=== PATIENT | female | born 1995 | race Caucasian/White ===

== ENCOUNTER 2020-02-27 11:44 | Inpatient (IN) | payer OTHER, SELFPAY ==
[2020-02-27] VITALS (13 sets, daily range): BP systolic 95–128; BP diastolic 47–85; PULSE 67–92; RESP 13–18; TEMP 37–37.3; O2SAT 96–99; BMI 25.0
--- NOTE | 2020-02-27 12:34 | XRR_ITS ---
PROCEDURE INFORMATION: Exam: XR Chest, 1 View Exam date and time: 02/27/2020 1:15 PM Age: 25 years old Clinical indication: Fever TECHNIQUE: Imaging protocol: XR of the chest Views: 1 view. COMPARISON: No relevant prior studies available. FINDINGS: Lungs: Unremarkable. No consolidation. Pleural space: Unremarkable. No pleural effusion. No pneumothorax. Heart/Mediastinum: Unremarkable. No cardiomegaly. Bones/joints: No acute findings. XR/XR chest 1V portable [id number] IMPRESSION: No acute findings.
--- NOTE | 2020-02-27 12:34 | CTR_ITS ---
PROCEDURE INFORMATION: Exam: CT Head Without Contrast Exam date and time: 02/27/2020 1:12 PM Age: 25 years old Clinical indication: Pain; Fever; Headache and other: Neck; Headache not specified; Additional info: Severe headache, neck pain, fever TECHNIQUE: Imaging protocol: Computed tomography of the head without contrast. Radiation optimization: All CT scans at this facility use at least one of these dose optimization techniques: automated exposure control; mA and/or kV adjustment per patient size (includes targeted exams where dose is matched to clinical indication); or iterative reconstruction. COMPARISON: No relevant prior studies available. RADIATION DOSE METRICS: Total DLP (mGy-cm): 825.63 FINDINGS: Brain: No hemorrhage. Unremarkable white matter. No mass effect. Ventricles: Normal. No ventriculomegaly. Bones/joints: Unremarkable. No acute fracture. Sinuses: No acute sinusitis. Mastoid air cells: Unremarkable. Soft tissues: Unremarkable. CT/CT head wo con* [id number] IMPRESSION: No acute intracranial abnormality. Radiation Dose CTDIVOL = (mGy): DLP = 825.63 (mGy-cm)
[2020-02-27 12:49] LABS: Basophils % 0.4 %; Eosinophils # 0.1 10^3/uL (0.0-0.8); Eosinophils % 0.9 %; Hematocrit 38.6 % (37.0-47.0); Hemoglobin 12.7 g/dL (11.5-15.3); Lymphocytes # 2.4 10^3/uL (0.8-4.8); Lymphocytes % 25.6 %; Mean Corpuscular HGB Conc 32.9 g/dL (30.0-36.0); Mean Corpuscular Hemoglobin 29.4 pg (28.0-34.0); Mean Corpuscular Volume 89.4 fL (81-99); Mean Platelet Volume 10.2 fL (7.4-10.4); Monocytes # 0.7 10^3/uL (0.2-0.9); Neutrophils % 64.9 %; Nucleated Red Blood Cells % 0 %; Platelet Count 351 10^3/cmm (130-400); Red Blood Count 4.32 10^6/uL (4.1-5.3); Red Cell Distribution Width 11.5 % (12.1-15.1); White Blood Count 9.2 10^3/uL (4.0-10.0)
[2020-02-27 12:54] LABS: HCG Qualitative Urine. Negative (Negative)
[2020-02-27 12:58] LABS: Lactate (Lactic Acid level) 0.6 mmol/L (0.5-2.2)
[2020-02-27 12:59] LABS: Alanine Aminotransferase 17 U/L (0-33); Albumin Level 4.7 g/dL (3.5-5.2); Alkaline Phosphatase 81 IU/L (35-105); Anion Gap 14.8 (5-19); Aspartate Amino Transferase 24 U/L (0-32); Blood Urea Nitrogen 12 mg/dL (6-20); Calcium 9.5 mg/dL (8.5-10.5); Carbon Dioxide 24 mmol/L (22-29); Chloride 101 mmol/L (98-107); Globulin 2.9 g/dL (1.3-4.6); Glucose 118 mg/dL (65-115); Osmolality Calculated 279 mOsm/kg (285-295); Potassium 3.8 mmol/L (3.5-5.1); Sodium 136 mmol/L (136-145); Total Bilirubin 0.7 mg/dL (0.15-1.2); Total Protein 7.6 g/dL (6.6-8.7)
[2020-02-27 13:01] LABS: Add Urine Microscopic? YES; Amphetamines Screen Urine Negative (Negative); Barbiturates Screen Urine Negative (Negative); Benzodiazepines Screen Urine Negative (Negative); Bilirubin Urine Neg (NEGATIVE); Blood Urine 2+ (Negative); Cocaine Screen Urine Negative (Negative); Glucose Urine UA Norm (Normal); Ketones Urine 1+ (Negative); Leukocyte Esterase Urine Trace (Negative); Nitrate Urine Negative (Negative); Opiate Screen Urine Negative (Negative); PCP Screen Urine Negative (Negative); Protein Urine Neg (Negative); THC Screen Urine Negative (Negative); Urine Color Yellow (Yellow); Urobilinogen Urine Neg (Negative); pH Urine 5 (5-7)
[2020-02-27 13:05] LABS: Add Urine Culture? Yes; Bacteria Urine 2+; Mucus Urine 2+
--- NOTE | 2020-02-27 13:07 | ED_ITS ---
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 She presents today with extreme weakness, fever of about 100 ?F, severe headache and neck pain. Symptoms started last night but became much worse in the early hours of this morning. She denies any cough or difficulty breathing. She denies any abdominal symptoms. No dysuria or hematuria. She has had tick bites within the last 2 weeks. She went to her primary care provider's office today who was worried about meningitis and so sent her here to be evaluated. Onset (ago): day(s) (1) Location: head Radiation: neck Severity: severe Associated symptoms: Reports fevers/chills and malaise; Deny chest pain, confusion, cough, dyspnea, nausea, rash, short of breath or vomiting Review of Systems General: Reports: 10 or more systems reviewed and unremarkable except in HPI and below Const: Reports: malaise Eyes: Denies: change in vision or blurry vision ENMT: Denies: throat pain, enlarged tonsils, odynophagia, hoarseness, mouth pain or swelling of lips/tongue Card: Denies: chest pain Resp: Denies: dyspnea GI: Denies: abdominal pain, nausea or vomiting : Denies: flank pain, difficulty voiding, dysuria, urinary frequency, urin reed urgency or urinary hesitancy Musc: Denies: neck pain, back pain or extremity swelling Skin/Breast: Denies: rash Neuro: Denies: confusion Endo: Denies: polyuria, polydipsia or tired all the time PFSH ED PFSH: Medical History Meningitis Seizures Family History Grandfather Diabetes Denies family history of Dementia Cancer Social History (Updated 02/27/20 @ 17:01 by Matt Pichardo MD) Smoking and tobacco status: never smoked Second hand smoke exposure: No Alcohol intake: never Substance/Drug Use: never Lives independently: No Household members: spouse Housing: House Highest education level completed: Other Doctoral Degree Physical Exam Const: COMMON NORMALS: no acute distress, average body habitus, patient oriented x3, no limitations, healthy appearing, alert and well nourished GENERAL APPEARANCE: lethargic ORIENTATION/CONSCIOUSNESS: Yes lethargic HENMT: COMMON NORMALS: normocephalic, atraumatic and moist oral mucous membranes HEAD & SCALP: normocephalic and atraumatic Eye: COMMON NORMALS: Equal, round and reactive pupils present, EOMs intact bilaterally, conjunctivae normal and no scleral icterus CONJUNCTIVA: Yes conjunctivae normal PUPIL: Yes Equal, round and reactive pupils present Neck/C-Spine: COMMON NORMALS: full ROM, supple, no meningeal signs, no JVD and No carotid bruits OTHER: Negative Kernig's and Brudzinski's sign Resp: COMMON NORMALS: normal respiratory effort, No retractions, No use of accessory muscles, clear to auscultation bilaterally and percussion normal AUSCULTATION: clear to auscultation bilaterally PERCUSSION: percussion normal Cardio: COMMON NORMALS: no JVD, regular rate, regular rhythm, S1 normal heart sound present, S2 normal heart sound present, No gallops present (Cardio), No clicks present (Cardio), No murmurs present (Cardio), No rub (Cardio) and Peripheral pulses 2+ throughout RATE: regular rate RHYTHM: regular rhythm HEART SOUNDS: S1 normal heart sound present and S2 normal heart sound present PERIPHERAL PULSES: Peripheral pulses 2+ throughout GI: COMMON NORMALS: Normal to inspection, nondistended, normoactive bowel sounds present, Soft to palpation, non-tender, No hepatosplenomegaly present, no masses and no bruits PALPATION: Yes Soft to palpation and Yes No hepatosplenomegaly present : COMMON NORMALS: Yes no CVA tenderness BLADDER/KIDNEY EXAM: Yes no CVA tenderness Back/Pelvis: COMMON NORMALS: no CVA tenderness Extremity: COMMON NORMALS: normal to inspection, full ROM, capillary refill normal, no calf tenderness and no pedal edema Neuro: COMMON NORMALS: patient oriented x3 SENSORIUM/ORIENTATION: Yes alert and Yes lethargic MENINGEAL SIGNS: Yes no meningeal signs Skin: COMMON NORMALS: no rashes or lesions noted, no wounds, turgor normal, no jaundice, no petechiae and no mottling GENERAL SKIN EXAM: no rashes or lesions noted and turgor normal Course Reevaluation(s): Reevaluation #1: Discussed her lab and imaging findings with her. CSF analysis seems to support viral meningitis although with a high protein he could possibly be bacterial. Will advise hospital admission. She voiced understanding and is in agreement with the plan. Time: 16:10 Consultations: Consultation #1: Dr. Guzman, hospitalist. He kindly accepts patient to his service. 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 She was sent in here because her primary care provider was worried about meningitis. She had no meningeal signs however since her labs were unremarkable and head CT was negative a lumbar puncture was done by interventional radiology. She does have elevated white cell count in her CSF with almost 100% mononuclear cells. This is suggestive of a viral meningitis, however protein is increased which is more in keeping with a bacterial meningitis. Since this is a mixed picture she was started on antibiotics and she is admitted to the hospital for further evaluation and management. She is also tested for COVID-19 Medical Records: Attestation: I reviewed the patient's medical records. Lab Data: Attestation: I reviewed the patient's lab results. Labs: Lab Results 02/27/20 02/27/20 02/27/20 Range/Units 12:19 12:19 12:19 WBC 9.2 (4.0-10.0) 10^3/ uL RBC 4.32 (4.1-5.3) 10^6/u L Hgb 12.7 (11.5-15.3) g/dL Hct 38.6 (37.0-47.0) % MCV 89.4 (81-99) fL MCH 29.4 (28.0-34.0) pg MCHC 32.9 (30.0-36.0) g/dL RDW 11.5 L (12.1-15.1) % Plt Count 351 (130-400) 10^3/c mm MPV 10.2 (7.4-10.4) fL Neut % (Auto) 64.9 % Lymph % (Auto) 25.6 % Free[place] % (Auto) 8.0 % Eos % (Auto) 0.9 % Baso % (Auto) 0.4 % Neut # (Auto) 6.0 (1.8-7.7) 10^3/u L Lymph # (Auto) 2.4 (0.8-4.8) 10^3/u L Free[place] # (Auto) 0.7 (0.2-0.9) 10^3/u L Eos # (Auto) 0.1 (0.0-0.8) 10^3/u L Baso # (Auto) 0.0 (0.0-0.1) 10^3/u L Nucleated RBC % (a uto) 0 % Nucleated RBCs # 0.0 /100WBC ESR (0-15) mm/hr D-Dimer (0-0.59) ug/mIFE U Sodium 136 (136-145) mmol/L Potassium 3.8 (3.5-5.1) mmol/L Chloride 101 (98-107) mmol/L Carbon Dioxide 24 (22-29) mmol/L Anion Gap 14.8 (5-19) BUN 12 (6-20) mg/dL Creatinine 0.7 (0.5-0.9) mg/dL GFR Calculation 102.0 (90-130) mL/min Glucose 118 H (65-115) mg/dL Calculated Osmolal ity 279 L (285-295) mOsm/k g Lactate 0.6 (0.5-2.2) mmol/L Calcium 9.5 (8.5-10.5) mg/dL Total Bilirubin 0.7 (0.15-1.2) mg/dL AST 24 (0-32) U/L ALT 17 (0-33) U/L Alkaline Phosphata se 81 (35-105) IU/L Lactate Dehydrogen ase (135-214) U/L C-Reactive Protein 3.3 (0.0-4.9) mg/L Total Protein 7.6 (6.6-8.7) g/dL Albumin 4.7 (3.5-5.2) g/dL Globulin 2.9 (1.3-4.6) g/dL Procalcitonin 0.04 (0-0.5) ng/mL TSH (0.27-4.20) uIU/ mL HCG, Qual (Negative) Urine Color (Yellow) Urine Appearance (CLEAR) Urine pH (5-7) Ur Specific Gravit y (1.005-1.030) Urine Protein (Negative) Urine Glucose (UA) (Normal) Urine Ketones (Negative) Urine Blood (Negative) Urine Nitrate (Negative) Urine Bilirubin (NEGATIVE) Urine Urobilinogen (Negative) mg/dL Ur Leukocyte Yamilet ase (Negative) Urine RBC (0-2) /hpf Urine WBC (0-5) /hpf Ur Squamous Epith Cells (0-5) Amorphous Sediment Urine Bacteria (NONE) Urine Mucus CSF Appearance (CLEAR) CSF Color (COLORLESS) CSF WBC (0-5) /uL CSF RBC (0-0) 10^3/uL CSF Mononuclear # Auto (50-90) 10^3/uL CSF Mononuclear WB Cs % (50-90) % CSF Polynuclear WB Cs # (0-10) 10^3/uL CSF Polynuclear WB Cs % (0-10) % CSF Diff Comment CSF Glucose (40-70) mg/dL CSF Lactate CSF Total Protein (15-45) mg/dL CSF Albumin Urine Opiates Scre en (Negative) ng/mL Ur Barbiturates Sc reen (Negative) ng/mL Ur Phencyclidine S crn (Negative) ng/mL Ur Amphetamines Sc reen (Negative) ng/mL U Benzodiazepines Scrn (Negative) ng/mL Urine Cocaine Scre en (Negative) ng/mL U Marijuana (THC) Screen (Negative) ng/mL 02/27/20 02/27/20 02/27/20 Range/Units 12:19 12:19 12:19 WBC (4.0-10.0) 10^3/ uL RBC (4.1-5.3) 10^6/u L Hgb (11.5-15.3) g/dL Hct (37.0-47.0) % MCV (81-99) fL MCH (28.0-34.0) pg MCHC (30.0-36.0) g/dL RDW (12.1-15.1) % Plt Count (130-400) 10^3/c mm MPV (7.4-10.4) fL Neut % (Auto) % Lymph % (Auto) % Free[place] % (Auto) % Eos % (Auto) % Baso % (Auto) % Neut # (Auto) (1.8-7.7) 10^3/u L Lymph # (Auto) (0.8-4.8) 10^3/u L Free[place] # (Auto) (0.2-0.9) 10^3/u L Eos # (Auto) (0.0-0.8) 10^3/u L Baso # (Auto) (0.0-0.1) 10^3/u L Nucleated RBC % (a uto) % Nucleated RBCs # /100WBC ESR 15 (0-15) mm/hr D-Dimer 0.60 H (0-0.59) ug/mIFE U Sodium (136-145) mmol/L Potassium (3.5-5.1) mmol/L Chloride (98-107) mmol/L Carbon Dioxide (22-29) mmol/L Anion Gap (5-19) BUN (6-20) mg/dL Creatinine (0.5-0.9) mg/dL GFR Calculation (90-130) mL/min Glucose (65-115) mg/dL Calculated Osmolal ity (285-295) mOsm/k g Lactate (0.5-2.2) mmol/L Calcium (8.5-10.5) mg/dL Total Bilirubin (0.15-1.2) mg/dL AST (0-32) U/L ALT (0-33) U/L Alkaline Phosphata se (35-105) IU/L Lactate Dehydrogen ase 168 (135-214) U/L C-Reactive Protein 3.3 (0.0-4.9) mg/L Total Protein (6.6-8.7) g/dL Albumin (3.5-5.2) g/dL Globulin (1.3-4.6) g/dL Procalcitonin (0-0.5) ng/mL TSH 0.65 (0.27-4.20) uIU/ mL HCG, Qual (Negative) Urine Color (Yellow) Urine Appearance (CLEAR) Urine pH (5-7) Ur Specific Gravit y (1.005-1.030) Urine Protein (Negative) Urine Glucose (UA) (Normal) Urine Ketones (Negative) Urine Blood (Negative) Urine Nitrate (Negative) Urine Bilirubin (NEGATIVE) Urine Urobilinogen (Negative) mg/dL Ur Leukocyte Yamilet ase (Negative) Urine RBC (0-2) /hpf Urine WBC (0-5) /hpf Ur Squamous Epith Cells (0-5) Amorphous Sediment Urine Bacteria (NONE) Urine Mucus CSF Appearance (CLEAR) CSF Color (COLORLESS) CSF WBC (0-5) /uL CSF RBC (0-0) 10^3/uL CSF Mononuclear # Auto (50-90) 10^3/uL CSF Mononuclear WB Cs % (50-90) % CSF Polynuclear WB Cs # (0-10) 10^3/uL CSF Polynuclear WB Cs % (0-10) % CSF Diff Comment CSF Glucose (40-70) mg/dL CSF Lactate CSF Total Protein (15-45) mg/dL CSF Albumin Urine Opiates Scre en (Negative) ng/mL Ur Barbiturates Sc reen (Negative) ng/mL Ur Phencyclidine S crn (Negative) ng/mL Ur Amphetamines Sc reen (Negative) ng/mL U Benzodiazepines Scrn (Negative) ng/mL Urine Cocaine Scre en (Negative) ng/mL U Marijuana (THC) Screen (Negative) ng/mL 02/27/20 02/27/20 02/27/20 Range/Units 12:43 12:43 12:46 WBC (4.0-10.0) 10^3/ uL RBC (4.1-5.3) 10^6/u L Hgb (11.5-15.3) g/dL Hct (37.0-47.0) % MCV (81-99) fL MCH (28.0-34.0) pg MCHC (30.0-36.0) g/dL RDW (12.1-15.1) % Plt Count (130-400) 10^3/c mm MPV (7.4-10.4) fL Neut % (Auto) % Lymph % (Auto) % Free[place] % (Auto) % Eos % (Auto) % Baso % (Auto) % Neut # (Auto) (1.8-7.7) 10^3/u L Lymph # (Auto) (0.8-4.8) 10^3/u L Free[place] # (Auto) (0.2-0.9) 10^3/u L Eos # (Auto) (0.0-0.8) 10^3/u L Baso # (Auto) (0.0-0.1) 10^3/u L Nucleated RBC % (a uto) % Nucleated RBCs # /100WBC ESR (0-15) mm/hr D-Dimer (0-0.59) ug/mIFE U Sodium (136-145) mmol/L Potassium (3.5-5.1) mmol/L Chloride (98-107) mmol/L Carbon Dioxide (22-29) mmol/L Anion Gap (5-19) BUN (6-20) mg/dL Creatinine (0.5-0.9) mg/dL GFR Calculation (90-130) mL/min Glucose (65-115) mg/dL Calculated Osmolal ity (285-295) mOsm/k g Lactate (0.5-2.2) mmol/L Calcium (8.5-10.5) mg/dL Total Bilirubin (0.15-1.2) mg/dL AST (0-32) U/L ALT (0-33) U/L Alkaline Phosphata se (35-105) IU/L Lactate Dehydrogen ase (135-214) U/L C-Reactive Protein (0.0-4.9) mg/L Total Protein (6.6-8.7) g/dL Albumin (3.5-5.2) g/dL Globulin (1.3-4.6) g/dL Procalcitonin (0-0.5) ng/mL TSH (0.27-4.20) uIU/ mL HCG, Qual Negative (Negative) Urine Color Yellow (Yellow) Urine Appearance Sl cloudy A (CLEAR) Urine pH 5 (5-7) Ur Specific Gravit y 1.020 (1.005-1.030) Urine Protein Neg (Negative) Urine Glucose (UA) Norm (Normal) Urine Ketones 1+ H (Negative) Urine Blood 2+ H (Negative) Urine Nitrate Negative (Negative) Urine Bilirubin Neg (NEGATIVE) Urine Urobilinogen Neg (Negative) mg/dL Ur Leukocyte Yamilet ase Trace H (Negative) Urine RBC 5-10 H (0-2) /hpf Urine WBC 5-10 H (0-5) /hpf Ur Squamous Epith Cells 5-10 H (0-5) Amorphous Sediment Not Reportable Urine Bacteria 2+ H (NONE) Urine Mucus 2+ CSF Appearance (CLEAR) CSF Color (COLORLESS) CSF WBC (0-5) /uL CSF RBC (0-0) 10^3/uL CSF Mononuclear # Auto (50-90) 10^3/uL CSF Mononuclear WB Cs % (50-90) % CSF Polynuclear WB Cs # (0-10) 10^3/uL CSF Polynuclear WB Cs % (0-10) % CSF Diff Comment CSF Glucose (40-70) mg/dL CSF Lactate CSF Total Protein (15-45) mg/dL CSF Albumin Urine Opiates Scre en Negative (Negative) ng/mL Ur Barbiturates Sc reen Negative (Negative) ng/mL Ur Phencyclidine S crn Negative (Negative) ng/mL Ur Amphetamines Sc reen Negative (Negative) ng/mL U Benzodiazepines Scrn Negative (Negative) ng/mL Urine Cocaine Scre en Negative (Negative) ng/mL U Marijuana (THC) Screen Negative (Negative) ng/mL 02/27/20 Range/Units 15:15 WBC (4.0-10.0) 10^3/ uL RBC (4.1-5.3) 10^6/u L Hgb (11.5-15.3) g/dL Hct (37.0-47.0) % MCV (81-99) fL MCH (28.0-34.0) pg MCHC (30.0-36.0) g/dL RDW (12.1-15.1) % Plt Count (130-400) 10^3/c mm MPV (7.4-10.4) fL Neut % (Auto) % Lymph % (Auto) % [place] % (Auto) % Eos % (Auto) % Baso % (Auto) % Neut # (Auto) (1.8-7.7) 10^3/u L Lymph # (Auto) (0.8-4.8) 10^3/u L [place] # (Auto) (0.2-0.9) 10^3/u L Eos # (Auto) (0.0-0.8) 10^3/u L Baso # (Auto) (0.0-0.1) 10^3/u L Nucleated RBC % (a uto) % Nucleated RBCs # /100WBC ESR (0-15) mm/hr D-Dimer (0-0.59) ug/mIFE U Sodium (136-145) mmol/L Potassium (3.5-5.1) mmol/L Chloride (98-107) mmol/L Carbon Dioxide (22-29) mmol/L Anion Gap (5-19) BUN (6-20) mg/dL Creatinine (0.5-0.9) mg/dL GFR Calculation (90-130) mL/min Glucose (65-115) mg/dL Calculated Osmolal ity (285-295) mOsm/k g Lactate (0.5-2.2) mmol/L Calcium (8.5-10.5) mg/dL Total Bilirubin (0.15-1.2) mg/dL AST (0-32) U/L ALT (0-33) U/L Alkaline Phosphata se (35-105) IU/L Lactate Dehydrogen ase (135-214) U/L C-Reactive Protein (0.0-4.9) mg/L Total Protein (6.6-8.7) g/dL Albumin (3.5-5.2) g/dL Globulin (1.3-4.6) g/dL Procalcitonin (0-0.5) ng/mL TSH (0.27-4.20) uIU/ mL HCG, Qual (Negative) Urine Color (Yellow) Urine Appearance (CLEAR) Urine pH (5-7) Ur Specific Gravit y (1.005-1.030) Urine Protein (Negative) Urine Glucose (UA) (Normal) Urine Ketones (Negative) Urine Blood (Negative) Urine Nitrate (Negative) Urine Bilirubin (NEGATIVE) Urine Urobilinogen (Negative) mg/dL Ur Leukocyte Yamilet ase (Negative) Urine RBC (0-2) /hpf Urine WBC (0-5) /hpf Ur Squamous Epith Cells (0-5) Amorphous Sediment Urine Bacteria (NONE) Urine Mucus CSF Appearance Clear (CLEAR) CSF Color Colorless (COLORLESS) CSF WBC 80 H (0-5) /uL CSF RBC 0 (0-0) 10^3/uL CSF Mononuclear # Auto 0.078 L (50-90) 10^3/uL CSF Mononuclear WB Cs % 98 H (50-90) % CSF Polynuclear WB Cs # 0.002 (0-10) 10^3/uL CSF Polynuclear WB Cs % 2 (0-10) % CSF Diff Comment Yes CSF Glucose 45 (40-70) mg/dL CSF Lactate TNP CSF Total Protein 70 H (15-45) mg/dL CSF Albumin TNP Urine Opiates Scre en (Negative) ng/mL Ur Barbiturates Sc reen (Negative) ng/mL Ur Phencyclidine S crn (Negative) ng/mL Ur Amphetamines Sc reen (Negative) ng/mL U Benzodiazepines Scrn (Negative) ng/mL Urine Cocaine Scre en (Negative) ng/mL U Marijuana (THC) Screen (Negative) ng/mL Imaging Data^: CXR: Radiologist's impression: [address] [address] XRay Report Signed Patient: Deborah Koch #: [id number] : 1995Acct#:[id number] Age/Sex: 25 FADM Date: 02/27/20 Loc: [facility]/Bed: Attending Dr: Ordering Provider/Ordering MD: Julius Ricks MD, [facility] [place] Date of Service: 02/27/20 Procedure(s): XR chest 1V portable [id number] Accession Number(s): [id number] Report Number: [id number] PROCEDURE INFORMATION: Exam: XR Chest, 1 View Exam date and time: 02/27/2020 1:15 PM Age: 25 years old Clinical indication: Fever TECHNIQUE: Imaging protocol: XR of the chest Views: 1 view. COMPARISON: No relevant prior studies available. FINDINGS: Lungs: Unremarkable. No consolidation. Pleural space: Unremarkable. No pleural effusion. No pneumothorax. Heart/Mediastinum: Unremarkable. No cardiomegaly. Bones/joints: No acute findings. XR/XR chest 1V portable [id number] IMPRESSION: No acute findings. Dictated By:Carlos Fernandez MD Signed By:[facility] Fernandez [facility] Date/Time:06/1336 DD/ 34 CT Head: Radiologist's impression: [address] [place] [address] CT Scan Report Signed Patient: Deborah Koch #: [id number] : 1995Acct#:[id number] Age/Sex: 25 / FADM Date: 02/27/20 Loc: [facility]/Bed: Attending Dr: Ordering Provider/Ordering MD: Julius Ricks MD, [facility] [place] Date of Service: 02/27/20 Procedure(s): CT head wo con* [id number] Accession Number(s): [id number] Report Number: [id number] PROCEDURE INFORMATION: Exam: CT Head Without Contrast Exam date and time: 02/27/2020 1:12 PM Age: 25 years old Clinical indication: Pain; Fever; Headache and other: Neck; Headache not specified; Additional info: Severe headache, neck pain, fever TECHNIQUE: Imaging protocol: Computed tomography of the head without contrast. Radiation optimization: All CT scans at this facility use at least one of these dose optimization techniques: automated exposure control; mA and/or kV adjustment per patient size (includes targeted exams where dose is matched to clinical indication); or iterative reconstruction. COMPARISON: No relevant prior studies available. RADIATION DOSE METRICS: Total DLP (mGy-cm): 825.63 FINDINGS: Brain: No hemorrhage. Unremarkable white matter. No mass effect. Ventricles: Normal. No ventriculomegaly. Bones/joints: Unremarkable. No acute fracture. Sinuses: No acute sinusitis. Mastoid air cells: Unremarkable. Soft tissues: Unremarkable. CT/CT head wo con* [id number] IMPRESSION: No acute intracranial abnormality. Radiation Dose CTDIVOL = (mGy): DLP = 825.63 (mGy-cm) Dictated By:Carlos Fernandez MD Signed By:Carlos Fernandez MDSigned Date/Time:02/27/201337 DD/ 35 Discharge Plan Discharge Patient Disposition: Admitted As Inpatient Admit Provider: Matt Pichardo Clinical Impression: Meningitis Condition: Stable Interventions: ED Discharge Assessment Last Done: 02/27/20 17:20 ED Charges Last Done: 02/27/20 17:20 Discharge Date/Time: 02/27/20 17:22 Coding Level of Care Code ED Allocation Analyst for Chg Fwd Exam Comprehensive
--- NOTE | 2020-02-27 14:28 | FL_ITS ---
WS: [id number] LUMBAR PUNCTURE CLINICAL INFORMATION: Headache, fever, neck pain COMPARISON: None. TECHNIQUE: Informed consent: The procedure and its potential risk and complications were discussed with the fausto ent. Verbal and written consent was obtained. Timeout: A timeout was performed to confirm correct patient, procedure, and site. Patient was prepped and draped in the usual sterile fashion. Lidocaine 1% was used for local anesthes ia. Utilizing fluoroscopic guidance, a 3.5 inch 22-gauge spinal needle was advanced into the subarach noid space at L4-5 via left oblique sublaminar approach. Free flow of clear CSF was obtained. 10 cc o f CSF was collected and sent the lab for further analysis. FLUOROSCOPIC TIME: .1 minutes. FL/FL guided lumbarpunc dx* [id number] IMPRESSION: Fluoroscopically guided lumbar puncture with removal of 10 cc clear CSF. No imm ediate complications
--- NOTE | 2020-02-27 14:44 | PC.NURSE ---
Consent for lumbar puncture signed and placed in chart.
[2020-02-27 14:56] LABS: Procalcitonin 0.04 ng/mL (0-0.5)
[2020-02-27 15:07] LABS: C Reactive Protein 3.3 mg/L (0.0-4.9)
[2020-02-27 15:44] LABS: CSF Mononuclear # 0.078 10^3/uL (50-90); Mononuclear WBC CSF % 98 % (50-90); Polynuclear Cells ,CSF # 0.002 10^3/uL (0-10); Polynuclear WBC CSF % 2 % (0-10); Red Blood Cell CSF 0 10^3/uL (0-0); White Blood Cell CSF 80 /uL (0-5)
[2020-02-27 15:46] LABS: Appearance CSF CLEAR (CLEAR); Color CSF COLORLESS (COLORLESS)
[2020-02-27 15:47] LABS: Pathology Referral Yes
[2020-02-27 16:07] LABS: Glucose CSF 45 mg/dL (40-70); Total Protein CSF 70 mg/dL (15-45)
[2020-02-27] MEDS: ketorolac 30 mg/mL INJ IVP (16:52)
[2020-02-27] MEDS: sodium chloride 0.9% 1,000 ML 100 ML IV ×2 (16:52→22:39)
--- NOTE | 2020-02-27 16:56 | PM.HP ---
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 Also had fever going up to 100.4 Fahrenheit over night. As patient's headache and generalized myalgia got worse she went to her primary care physician who asked her to come to the ER for further evaluation. 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 Fever associated with chills. She did have a history of tick bite around a week ago for which she has not had any treatment. She had pulled a tick on her own. She states she is usually exposed to tick bite at least once or twice every year. She does give history of having seizures in the past for last seizure 3 years ago. Currently she is not on any treatment. She also gives history of a possible meningitis-like illness in the past when she was a child and was admitted at [facility]. At that time apparently she was unconscious but not on a ventilator for over a week and was treated with IV antibiotics. She is not aware of any more details regarding that. In the ER patient's fever was 99.1, on my evaluation was lying comfortably in a dark room. Had photophobia on sitting on the lights are associated with nausea. Her blood work showed a white count of 9.2, hemoglobin of 12.7, CMP showing sodium of 136, creatinine of 0.7, lactate of 0.6, procalcitonin 0.04, urine studies negative for nitrate but positive for leuk esterase trace, CSF study showed a WBC of 80 with 98% mononuclear cells, CSF glucose of 45, protein of 70 with a drug screen being negative. Review of Systems Const: Reports: fever(s), chills and malaise; Denies: body aches, change in appetite, night sweats, diaphoresis, change in sleep pattern, daytime sleepiness or snoring Eyes: Reports: change in vision, blurry vision and photophobia; Denies: eye discomfort or eye discharge ENMT: Denies: throat pain, enlarged tonsils, hoarseness, mouth pain, oral sores, dry mouth, tinnitus, nasal congestion or post nasal drip Card: Denies: chest pain, palpitations, irregular heart rhythm, edema, swelling of feet/ankles, lightheadedness, syncope, pre-syncope, dyspnea on exertion, orthopnea, leg pain with exertion or acrocyanosis Resp: Denies: dyspnea, productive cough, non-productive cough, wheezing, stridor, pain on inspiration, change in phlegm color, hemoptysis or chest congestion GI: Denies: abdominal pain, nausea, vomiting, hematemesis, coffee ground emesis, dysphagia, heartburn, diarrhea, constipation, bloating, GI cramping, change in bowel habits, pain on defecation, hematochezia or melena : Denies: flank pain, dysuria, urinary frequency, urinary urgency, urinary hesitancy, nocturia or hematuria Musc: Denies: neck pain, back pain, extremity pain, joint pain, joint swelling, joint redness, joint stiffness or limited range of motion Neuro: Reports: headache(s); Denies: numbness in extremities, weakness in extremities, sensory changes, lack of coordination, difficulty walking, frequent falls, dizziness, vertigo, confusion, Slurred speech present, difficulty communicating thoughts or seizure-like activity Psych: Denies: anxiety, depression, mood swings, panic attacks, hopelessness or irritability Endo: Denies: polyuria, polydipsia, tired all the time, cold intolerance, excessive sweating, flushing or heat intolerance Ryder/Lymph: Denies: easy bruising or easy bleeding All/Imm: Denies: tongue swelling, facial swelling or acute wheezing Medications/Allergies Home Medications Medication Instructions Recorded Confirmed Last Taken Type acetaminophen 500 mg capsule 500 mg PO PRN 02/27/20 02/27/20 02/27/20 07:00 History ibuprofen 600 mg PO PRN 02/27/20 02/27/20 02/26/20 History multivitamin [Multiple Vitamins] 1 tab PO DAILY 02/27/20 02/27/20 Unknown History Allergies Allergy/AdvReac Type Severity Reaction Status Date / Time tramadol [From Ultram] Allergy Unknown Verified 02/27/20 15:54 PFSH Acute PFSH: Medical History Meningitis Seizures Family History Grandfather Diabetes Denies family history of Dementia Cancer Social History (Updated 02/27/20 @ 17:01 by Matt Pichardo MD) Smoking and tobacco status: never smoked Second hand smoke exposure: No Alcohol intake: never Substance/Drug Use: never Lives independently: No Household members: spouse Housing: House Highest education level completed: Other Doctoral Degree Vitals/I&O/Wt Last Vital Signs Temp 99.1 F 02/27/20 12:05 Pulse 69 02/27/20 15:30 Resp 16 02/27/20 15:30 BP 128/57 02/27/20 15:30 Pulse Ox 99 02/27/20 15:30 Weight last 48 hrs Weight 68.039 kg Physical Exam Narrative: EXAM NARRATIVE: General: No acute distress, AO x3, photophobia pallor present, Kernig's present HEENT: PERRLA, pupils bilaterally equal and reactive Chest: Normal vesicular breath sounds, no added sounds, equal good air entry bilaterally CVS: S1-S2 regular, no murmurs, no tachycardia, no gallops, no rubs Abdomen: Soft, nontender, no organomegaly, bowel sounds present Neuro: No focal deficits, no facial deformity, AO x3, power 5/5 in all limbs Extremities: Power bilaterally equal, pulses bilaterally equal Data : 02/27/20 12:19 02/27/20 12:19 Micro: Microbiology 02/27/20 15:15 Gram Stain - Final Cerebrospinal Fluid A&P Assessment and plan (1) Headache: Status: Acute (2) Meningitis: Status: Acute Additional A&P Information Headache, photophobia: Symptoms are concerning for meningitis: Patient symptoms of myalgia, headache with her being exposed to possible flulike symptoms patient's or COVID-19 patient's being high at ER cannot rule out viral meningitis. Check respiratory viral panel, COVID-19, rapid flu. Check ESR, CRP, LDH, d-dimer, blood cultures. For now patient does not have any difficulty in breathing and saturating more than 98% on room air so we will hold off on any nebulization. Even though patient does not have high white count and CSF WBC of only 80 which is mostly mononuclear but with CSF to serum glucose ratio of less than 0.4 while being borderline cannot rule out bacterial meningitis. For now start patient on vancomycin, Zosyn. Will de-escalate antibiotics as per the result of CSF Gram stain and culture. Patient has a history of being exposed to some kind of a tick bite in a week. Will check Lyme's disease antibodies, [place] encephalitis viral antibodies and CSF, serum tick panel. Start patient on doxycycline as well. Given the history of seizures in the past but not being on treatment for now. Will monitor patient for seizure precautions, fall precautions. Tylenol for headaches. Normal saline 100 cc/h. Full code. Lovenox 40 subcu daily Attestations Medical Necessity Statement*: More than 2 midnights for meningitis, COVID-19 rule out Time Spent in Patient Care: Greater than 35 minutes (>than 50% of time spent in counselling and/or direct pt care on unit). 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
[2020-02-27 17:27] LABS: Influenza A by IFA Negative (Negative); Influenza B by IFA Negative (Negative)
[2020-02-27 17:36] LABS: C Reactive Protein 3.3 mg/L (0.0-4.9); Lactate Dehydrogenase 168 U/L (135-214); Thyroid Stimulating Hormone 0.65 uIU/mL (0.27-4.20)
--- NOTE | 2020-02-27 18:22 | PC.NURSE ---
clrified fluid orders with Dr asher instructions to stop NS with K and continue NS at 75 ml/hr
[2020-02-27 18:29] LABS: Erythrocyte Sedimentation Rate 15 mm/hr (0-15)
[2020-02-27] MEDS: piperacillin-tazobactam 3.375 GM in sodium chloride 0.9% (plus) 50 ML IV (19:31)
[2020-02-27] MEDS: enoxaparin 40 mg/0.4 mL Syringe SUBCUT (19:32)
[2020-02-27] MEDS: doxycycline 100 mg Tablet PO (19:32)
[2020-02-27] MEDS: vancomycin 1,000 MG in sodium chloride 0.9% 250 ML 250 MG IV (19:33)
--- NOTE | 2020-02-27 20:03 | PC.NURSE ---
BEGINING OF SHIFT ASSESSMENT: Pt resting in bed. Complains of feeling weak and just tired. Reports shortness of breath, but no cough. Lungs clear. VSS. Currently no fever but does report fever around 100 degrees at home prior to arrival. Proper precautions maintained. IV atb infusing, see MAR. No complaints of pain or any other needs expressed. LATE ENTRY: Medications were late due to new admission and change of shift. Infusing now per orders, see MAR.
[2020-02-27] MEDS: sodium chloride 0.9% (100 ml) 100 ML (20:06)
--- NOTE | 2020-02-27 20:50 | PC.NURSE ---
REACTION: Pt called and stated that she has developed a rash to her head, scalp, and chest. Vancomycin stopped at this time. Noted rash and appears red. Pt denies shortness of breath and any other symptoms except itching. Dr. Armenta notifed and ordered to slow down vanc infusion. Decreased rate to 100ml/hr. Pt reports no worsening of symptoms. Instructed to call if any thing develops, such as shortness of breath or numbness or tingling. Monitoring closely.
[2020-02-27] MEDS: diphenhydrAMINE 50 mg/mL SDV 1mL 25 MG IVP (21:02)
[2020-02-28] VITALS: BP 115/72; PULSE 87; RESP 14; TEMP 37.1; O2SAT 98
[2020-02-28] MEDS: acetaminophen 325 mg Tablet 650 MG PO ×2 (02:54→20:12)
[2020-02-28 03:40] VITALS: BP 110/54; PULSE 86; RESP 16; TEMP 37.3; O2SAT 96
[2020-02-28] MEDS: piperacillin-tazobactam 3.375 GM in sodium chloride 0.9% (plus) 50 ML IV ×3 (03:44→20:09)
[2020-02-28] MEDS: vancomycin 1,000 MG in sodium chloride 0.9% 250 ML 250 MG IV ×3 (03:44→18:47)
[2020-02-28 05:23] LABS: Alanine Aminotransferase 13 U/L (0-33); Albumin Level 3.7 g/dL (3.5-5.2); Alkaline Phosphatase 66 IU/L (35-105); Anion Gap 15.8 (5-19); Blood Urea Nitrogen 10 mg/dL (6-20); Calcium 8.6 mg/dL (8.5-10.5); Carbon Dioxide 19 mmol/L (22-29); Chloride 106 mmol/L (98-107); Globulin 2.8 g/dL (1.3-4.6); Glomerular Filtration Rate 121.8 mL/min (90-130); Glucose 81 mg/dL (65-115); Osmolality Calculated 279 mOsm/kg (285-295); Potassium 3.8 mmol/L (3.5-5.1); Sodium 137 mmol/L (136-145); Total Bilirubin 0.5 mg/dL (0.15-1.2); Total Protein 6.5 g/dL (6.6-8.7)
[2020-02-28 05:24] LABS: Aspartate Amino Transferase 19 U/L (0-32)
[2020-02-28 05:37] LABS: Basophils # 0.1 10^3/uL (0.0-0.1); Basophils % 0.4 %; Eosinophils # 0.1 10^3/uL (0.0-0.8); Hematocrit 37.7 % (37.0-47.0); Hemoglobin 11.7 g/dL (11.5-15.3); Lymphocytes # 1.9 10^3/uL (0.8-4.8); Lymphocytes % 16.7 %; Mean Corpuscular Volume 96.7 fL (81-99); Mean Platelet Volume 11.5 fL (7.4-10.4); Monocytes # 0.9 10^3/uL (0.2-0.9); Monocytes % 8.1 %; Neutrophils # 8.4 10^3/uL (1.8-7.7); Neutrophils % 73.5 %; Nucleated Red Blood Cells % 0 %; Platelet Count 161 10^3/cmm (130-400); Red Cell Distribution Width 11.6 % (12.1-15.1); White Blood Count 11.5 10^3/uL (4.0-10.0)
[2020-02-28 06:19] LABS: Slide Review Slide Review Perform
[2020-02-28 08:00] VITALS: BP 117/74; PULSE 80; RESP 16; TEMP 36.6; O2SAT 98
[2020-02-28] MEDS: doxycycline 100 mg Tablet PO ×2 (08:13→18:48)
[2020-02-28] MEDS: multivitamin therapeutic Tablet 1 TAB PO (08:13)
--- NOTE | 2020-02-28 08:52 | P.PN_ITS ---
Subjective Subjective: Interval history: Doing better today. COVID-19 this will still awaited. States photophobia is kind of relieved. Complains of occasional headache. Patient has remained afebrile since admission. Denies of any nausea, vomiting, headache. Vitals/I&O/Wt Last Vital Signs Temp 99.1 F 02/28/20 03:40 Pulse 86 02/28/20 03:40 Resp 16 02/28/20 03:40 BP 110/54 02/28/20 03:40 Pulse Ox 96 02/28/20 03:40 02/27/20 02/28/20 02/28/20 22:59 06:59 14:59 Intake Total 828.333 / 828.333 450 / 1278.333 Balance 828.333 / 828.333 450 / 1278.333 Weight last 48 hrs Weight 70.534 kg Weight 68.039 kg Physical Exam Narrative: EXAM NARRATIVE: General: No acute distress, AO x3, photophobia pallor present, Kernig's present HEENT: PERRLA, pupils bilaterally equal and reactive Chest: Normal vesicular breath sounds, no added sounds, equal good air entry bilaterally CVS: S1-S2 regular, no murmurs, no tachycardia, no gallops, no rubs Abdomen: Soft, nontender, no organomegaly, bowel sounds present Neuro: No focal deficits, no facial deformity, AO x3, power 5/5 in all limbs Extremities: Power bilaterally equal, pulses bilaterally equal Data : 02/28/20 03:25 02/28/20 03:25 Micro: Microbiology 02/27/20 12:43 Urine Culture - Preliminary Urine,Clean Catch 02/27/20 12:46 Legionella Urinary Antigen - Final Urine,Voided 02/27/20 12:25 Blood Culture - Preliminary Blood SPECIMEN COLLECTED 02/27/20 12:19 Blood Culture - Preliminary Blood SPECIMEN COLLECTED 02/27/20 15:15 Gram Stain - Final Cerebrospinal Fluid A&P Assessment and plan (1) Headache: Status: Acute (2) Meningitis: Status: Acute Additional A&P Information Headache, photophobia: Symptoms are concerning for meningitis: Patient symptoms of myalgia, headache with her being exposed to possible flulike symptoms patient's or COVID-19 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 Respiratory viral panel, COVID-19, results awaited. Flu negative. Results for ESR, CRP, LDH, d-dimer appreciated. Given borderline CSF results with CSF serum to glucose ratio of less than 0.4 cannot rule out bacterial meningitis. For now we will continue with vancomycin and Zosyn and will de-escalate as per the CSF culture results. White count mildly elevated today. Patient has a history of being exposed to some kind of a tick bite in a week. Will check Lyme's disease antibodies, [place] encephalitis viral antibodies a nd CSF, serum tick panel. Continue with doxycycline as well. Given the history of seizures in the past but not being on treatment for now. Will monitor patient for seizure precautions, fall precautions. Tylenol for headaches. Regular diet. Stop IV fluids as patient is taking oral diet well. Full code. Lovenox 40 subcu daily Attestations Medical Necessity Statement*: Meningitis, COVID-19 rule out Time Spent in Patient Care: Greater than 35 minutes Coding Level of Care Code Acute Pharmaceutical Laboratory Technician for [facility] Diagnoses Headache R51 Meningitis G03.9
--- NOTE | 2020-02-28 09:40 | PC.CHAP ---
Pastoral Care Encounter/Spiritual Assessment Type of Contact [] Declined director volunteer services visit [] Patient/Family/Request visit [] Outpatient visit [] Follow-up visit [] Physician referral [] Code/Alert [x] Routine visit [] Staff referral [] Actively dying [] Patient sleeping [] Family support [] [] Out of room [] Palliative care [] [] Receiving care in room [] Pre-surgical visit [] Trauma [] Long length of stay [] ICU visit [x] Other: Isolation Relational/Emotional Strength [] Patient feels connected with others/family/visitors/staff [] Distress [] Loneliness/isolation [] Abandonment Spirituality of Patient [] Person of Kalpana [] Attends Religious of their Kalpana [] Believes in Prayer [] Reads Bible or Mosque materials [] There are Spiritual issues to be addressed Rug Cleaner Interventions [] Prayer [] Active listening [] Non-anxious presence [] Spiritual/emotional support [] Crisis/trauma care [] Spiritual counseling [] Bereavement support [] Provided bereavement packet [] Provided Bible/devotional materials [] Provided toy/stuffed animal, coloring book to patient or family member [] Provided Communion [] Anointing/[place] [] Salvation [x] Completed spiritual assessment [] Other: Impact on Illness or Injury [] Angry [] Fearful [] Anxious [] Often cries [] Exhaustion [] Unable to work [] Unable to attend taoist [] Unable to walk/stand [] Unable to read [] Unable to drive [] Unable to eat/drink [] Unable to sleep [] Unable to be with family [] Patient intubated [] Other: Summary Time spent with patient
[2020-02-28 10:50] LABS: Vancomycin Trough 11.9 ug/mL (10-15)
[2020-02-28 13:00] LABS: Lyme AB Screen <0.90 index
[2020-02-28 16:00] VITALS: BP 116/69; PULSE 77; RESP 14; TEMP 36.9; O2SAT 97
[2020-02-28] MEDS: enoxaparin 40 mg/0.4 mL Syringe SUBCUT (18:49)
[2020-02-28 20:00] VITALS: BP 115/67; PULSE 73; RESP 19; TEMP 37.2; O2SAT 99
--- NOTE | 2020-02-28 20:57 | PC.NURSE ---
Patient does not have any complaints at this time. Call light within reach. Will monitor.
[2020-02-29] VITALS (9 sets, daily range): BP systolic 105–114; BP diastolic 51–60; PULSE 55–80; RESP 14–20; TEMP 36.6–36.8; O2SAT 96–100
[2020-02-29] MEDS: vancomycin 1,000 MG in sodium chloride 0.9% 250 ML 250 MG IV ×3 (02:02→18:26)
[2020-02-29] MEDS: piperacillin-tazobactam 3.375 GM in sodium chloride 0.9% (plus) 50 ML IV ×3 (03:02→22:59)
[2020-02-29 03:39] LABS: Basophils # 0.1 10^3/uL (0.0-0.1); Basophils % 0.6 %; Eosinophils # 0.2 10^3/uL (0.0-0.8); Eosinophils % 2.3 %; Hematocrit 34.6 % (37.0-47.0); Hemoglobin 11.4 g/dL (11.5-15.3); Lymphocytes # 2.3 10^3/uL (0.8-4.8); Lymphocytes % 25.7 %; Mean Corpuscular HGB Conc 32.9 g/dL (30.0-36.0); Mean Corpuscular Hemoglobin 29.4 pg (28.0-34.0); Mean Corpuscular Volume 89.2 fL (81-99); Mean Platelet Volume 10.4 fL (7.4-10.4); Monocytes % 11.1 %; Neutrophils # 5.3 10^3/uL (1.8-7.7); Neutrophils % 60.1 %; Nucleated Red Blood Cells % 0 %; Platelet Count 331 10^3/cmm (130-400); Red Blood Count 3.88 10^6/uL (4.1-5.3); Red Cell Distribution Width 11.6 % (12.1-15.1); White Blood Count 8.9 10^3/uL (4.0-10.0)
[2020-02-29 04:22] LABS: Alanine Aminotransferase 12 U/L (0-33); Alkaline Phosphatase 70 IU/L (35-105); Anion Gap 12.7 (5-19); Aspartate Amino Transferase 16 U/L (0-32); Blood Urea Nitrogen 10 mg/dL (6-20); Calcium 9.1 mg/dL (8.5-10.5); Carbon Dioxide 22 mmol/L (22-29); Chloride 107 mmol/L (98-107); Globulin 2.7 g/dL (1.3-4.6); Glomerular Filtration Rate 121.8 mL/min (90-130); Glucose 92 mg/dL (65-115); Osmolality Calculated 282 mOsm/kg (285-295); Potassium 3.7 mmol/L (3.5-5.1); Sodium 138 mmol/L (136-145); Total Bilirubin 0.2 mg/dL (0.15-1.2); Total Protein 6.7 g/dL (6.6-8.7)
--- NOTE | 2020-02-29 05:17 | PC.NURSE ---
Patient has had an uneventful night. Vital signs currently stable. Will monitor.
[2020-02-29] MEDS: multivitamin therapeutic Tablet 1 TAB PO (08:35)
[2020-02-29] MEDS: doxycycline 100 mg Tablet PO ×2 (08:35→17:18)
[2020-02-29] MEDS: acetaminophen 325 mg Tablet 650 MG PO ×2 (09:14→20:11)
[2020-02-29 11:09] LABS: Coronavirus Lab Test PTC NOT DETECTED
--- NOTE | 2020-02-29 12:36 | P.PN_ITS ---
Subjective Subjective: Interval history: Patient doing better. COVID-19 negative times 2. Patient has been occasional headaches with photophobia. Overall states is doing a lot better. Vitals/I&O/Wt Last Vital Signs Temp 98.1 F 02/29/20 12:00 Pulse 68 02/29/20 12:00 Resp 18 02/29/20 12:00 BP 112/54 02/29/20 12:00 Pulse Ox 97 02/29/20 12:00 02/28/20 02/29/20 02/29/20 22:59 06:59 14:59 Intake Total 500 / 2150 850 / 3000 290 / 290 Balance 500 / 2150 850 / 3000 290 / 290 Weight last 48 hrs Weight 70.76 kg Weight 70.534 kg Physical Exam Narrative: EXAM NARRATIVE: General: No acute distress, AO x3, photophobia pallor present, Kernig's present HEENT: PERRLA, pupils bilaterally equal and reactive Chest: Normal vesicular breath sounds, no added sounds, equal good air entry bilaterally CVS: S1-S2 regular, no murmurs, no tachycardia, no gallops, no rubs Abdomen: Soft, nontender, no organomegaly, bowel sounds present Neuro: No focal deficits, no facial deformity, AO x3, power 5/5 in all limbs Extremities: Power bilaterally equal, pulses bilaterally equal Data : 02/29/20 03:13 02/29/20 03:13 Micro: Microbiology 02/27/20 12:43 Urine Culture - Final Urine,Clean Catch 02/27/20 12:19 Blood Culture - Preliminary Blood NEGATIVE TO DATE 02/27/20 12:25 Blood Culture - Preliminary Blood NEGATIVE TO DATE 02/27/20 17:27 MRSA Culture - Final Nose 02/27/20 15:15 Gram Stain - Final Cerebrospinal Fluid CSF Culture - Preliminary 02/27/20 12:46 Legionella Urinary Antigen - Final Urine,Voided A&P Assessment and plan (1) Headache: Status: Acute (2) Meningitis: Status: Acute Additional A&P Information Headache, photophobia: Symptoms are concerning for meningitis: Patient symptoms of myalgia, headache with her being exposed to possible flulike symptoms patient's or COVID-19 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 Respiratory viral panel, results awaited. Flu negative, COVID-19 negative twice. Results for ESR, CRP, LDH, d-dimer appreciated. Given borderline CSF results with CSF serum to glucose ratio of less than 0.4 cannot rule out bacterial meningitis. For now we will continue with vancomycin and Zosyn and will de-escalate as per the CSF culture results. Patient has a history of being exposed to some kind of a tick bite in a week. Will check Lyme's disease antibodies, [place] encephalitis viral antibodies and CSF, serum tick panel awaited except lymes- negative. Continue with doxycycline as well. If patient's CSF culture continue to remain negative and her symptoms continue to improve will most likely discharge patient on oral doxycycline to cover for takes for next 10 days. Unfortunately tick panel both in serum and CSF will take up at least 10 days for the results to come back. Given the history of seizures in the past but not being on treatment for now. Will monitor patient for seizure precautions, fall precautions. Tylenol for headaches. Regular diet. Full code. 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
[2020-02-29] MEDS: ondansetron 2 mg/ML SDV 2 mL 4 MG IVP (18:22)
--- NOTE | 2020-02-29 18:33 | PC.NURSE ---
N/V Nurse called to room, patient vomited in trash can. Patient reports returning to room from a walk, getting dizzy then becoming nauseous. Zofran was administered. Zofran was reassessed, patient reports nausea is subsiding. Nurse to continue to monitor.
--- NOTE | 2020-02-29 19:11 | PC.NURSE ---
Patient lost her IV and IV antibiotic had to be paused. Will attempt to start new IV.
--- NOTE | 2020-02-29 20:12 | PC.NURSE ---
Failed attempt x2 with new IV by this RN. IV started on first attempt by another RN to left hand 22g. IV antibiotics restarted per order.
--- NOTE | 2020-02-29 22:14 | PC.NURSE ---
Documentation error. Patient's IV is in right hand, not left hand.
--- NOTE | 2020-02-29 23:34 | PC.NURSE ---
Patient does not have any complaints at this time. Will monitor.
--- NOTE | 2020-03-01 00:03 | PC.NURSE ---
Bedtime medications were late due to assisting with call lights and confused patients.
[2020-03-01] MEDS: vancomycin 1,000 MG in sodium chloride 0.9% 250 ML 250 MG IV (03:06)
[2020-03-01 04:00] VITALS: BP 100/49; PULSE 63; RESP 16; TEMP 37.2; O2SAT 97
[2020-03-01] MEDS: piperacillin-tazobactam 3.375 GM in sodium chloride 0.9% (plus) 50 ML IV (04:14)
--- NOTE | 2020-03-01 06:16 | PC.NURSE ---
Patient does not have any complaints at this time. Will monitor.
--- NOTE | 2020-03-01 06:50 | PC.NURSE ---
Bedside report with 2 nurses. patient resting with eyes closed with even, unlabored respirations. Nurse to continue to monitor.
[2020-03-01 07:23] VITALS: BP 96/57; PULSE 70; RESP 16; TEMP 37.1; O2SAT 97
[2020-03-01 07:43] LABS: Coronavirus Lab Test PTC NOT DETECTED
[2020-03-01] MEDS: multivitamin therapeutic Tablet 1 TAB PO (08:27)
[2020-03-01] MEDS: doxycycline 100 mg Tablet PO ×2 (08:27→17:08)
[2020-03-01] MEDS: vancomycin 1,000 MG in sodium chloride 0.9% 250 ML 200 MG IV (10:29)
[2020-03-01] MEDS: ondansetron 2 mg/ML SDV 2 mL 4 MG IVP (10:29)
[2020-03-01] MEDS: cefTRIAXone 2,000 MG in sodium chloride 0.9% (plus) 50 ML 100 MG IV (11:04)
--- NOTE | 2020-03-01 11:30 | PC.NURSE ---
Patient states that her headache was slightly worse and she felt a little nauseous, she was not interested in eating lunch. Nurse offered tylenol to ease headache. Patient states that she wants to wait on the tylenol and try just resting first. Nurse to continue to monitor.
[2020-03-01 12:00] VITALS: BP 109/57; PULSE 77; RESP 16; TEMP 36.8; O2SAT 98
--- NOTE | 2020-03-01 13:30 | PC.NURSE ---
Update: Patient stated that her nap eased the pain in her head. Patient requested some chicken broth then stated she would ambulate in the hallway.
[2020-03-01] MEDS: acetaminophen 325 mg Tablet 650 MG PO (13:52)
[2020-03-01 16:00] VITALS: BP 114/67; PULSE 87; RESP 12; TEMP 36.7; O2SAT 97
--- NOTE | 2020-03-01 16:11 | P.PN_ITS ---
Subjective Subjective: Interval history: Patient doing better. COVID-19 has been negative twice. She states her headache is improved. Denies of nausea or vomiting. Was able to walk down the rodriguez without having any difficulty. She states post walking in resting she had some nausea but no vomiting. Patient has remained afebrile since admission. Vitals/I&O/Wt Last Vital Signs Temp 98.2 F 03/01/20 12:00 Pulse 77 03/01/20 12:00 Resp 16 03/01/20 12:00 BP 109/57 03/01/20 12:00 Pulse Ox 98 03/01/20 12:00 03/01/20 03/01/20 03/01/20 06:59 14:59 22:59 Intake Total 870.833 / 2020.000 456.667 / 456.667 Balance 870.833 / 2019.000 456.667 / 456.667 Weight last 48 hrs Weight 69.989 kg Weight 70.76 kg Physical Exam Narrative: EXAM NARRATIVE: General: No acute distress, AO x3, photophobia pallor present, Kernig's present HEENT: PERRLA, pupils bilaterally equal and reactive Chest: Normal vesicular breath sounds, no added sounds, equal good air entry bilaterally CVS: S1-S2 regular, no murmurs, no tachycardia, no gallops, no rubs Abdomen: Soft, nontender, no organomegaly, bowel sounds present Neuro: No focal deficits, no facial deformity, AO x3, power 5/5 in all limbs Extremities: Power bilaterally equal, pulses bilaterally equal Data : 02/29/20 03:13 02/29/20 03:13 Micro: Microbiology 03/01/20 11:45 Stool Lactoferrin - Final Stool Enteric Pathogens (PCR) - Final C.difficile Toxin B Gene (PCR) - Final Occult Blood (FIT) - Final 02/27/20 15:15 Gram Stain - Final Cerebrospinal Fluid CSF Culture - Final A&P Assessment and plan (1) Headache: Status: Acute (2) Meningitis: Status: Acute Additional A&P Information Headache, photophobia: Symptoms are concerning for meningitis: 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 COVID-19 is been negative twice. Respiratory viral panel, tick panel is awaited. Lyme's serum is negative. [place] encephalitis awaited. Patient has improved quite significantly since admission. Most likely as patient is improving we will discharge her on doxycycline and IV ceftriaxone. Patient would require overall 10-day course of antibiotics. Patient CSF culture has remained negative. We will stop vancomycin and Zosyn. If patient remains stable in next 24 hours will most likely discharge her on doxycycline for 6 more days and IV ceftriaxone which she will be getting it as an outpatient once daily, 2gram for 8 more days to finish a 10-day course. Patient having diarrhea: Given the fact that she is on antibiotics cannot rule out C. difficile. Will check. Likely a part of viral infection. Given the history of seizures in the past but not being on treatment for now. Will monitor patient for seizure precautions, fall precautions. Tylenol for headaches. Regular diet. Full code. Lovenox 40 subcu daily Attestations Medical Necessity Statement*: Meningitis Time Spent in Patient Care: Greater than 35 minutes (>than 50% of time spent in counselling and/or direct pt care on unit) . Coding Level of Care Code Acute Financial Services Technician for [facility] Mancia Diagnoses Headache R51 Meningitis G03.9
[2020-03-01 17:00] LABS: RMSF IGG NOT DETECTED; RMSF IGM NOT DETECTED
--- NOTE | 2020-03-01 19:46 | PC.NURSE ---
Rounding: Patient is resting in bed and denies any pain or nausea at this time. assessment completed. Denies any needs at this time and will continue to montior.
[2020-03-01 20:00] VITALS: BP 117/58; PULSE 66; RESP 20; TEMP 37.2; O2SAT 100
[2020-03-01 22:15] LABS: E. Chaffeensis AB IGG <1:64; E. Chaffeensis AB IGM <1:20
[2020-03-02] VITALS: BP 110/49; PULSE 77; RESP 21; TEMP 36.7; O2SAT 98
[2020-03-02 04:00] VITALS: BP 95/47; PULSE 74; RESP 21; TEMP 36.8; O2SAT 98
--- NOTE | 2020-03-02 05:50 | PC.NURSE ---
End of shift: Patient has had a uneventful shift. Patient has rested well and had no complaints of pain or nausea. Will continue to monitor.
[2020-03-02 07:37] VITALS: BP 116/55; PULSE 90; RESP 15; TEMP 37.1; O2SAT 98
[2020-03-02] MEDS: multivitamin therapeutic Tablet 1 TAB PO (08:36)
[2020-03-02] MEDS: doxycycline 100 mg Tablet PO (08:36)
--- NOTE | 2020-03-02 09:37 | PC.NURSE ---
Physician at bedside. Patient to be discharged today after dose of antibiotic. Patient does not have any further questions and is agreeable with plan.
--- NOTE | 2020-03-02 09:38 | P.DS_ITS ---
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 Also had fever going up to 100.4 Fahrenheit over night. As patient's headache and generalized myalgia got worse she went to her primary care physician who asked her to come to the ER for further evaluation. 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 Fever associated with chills. She did have a history of tick bite around a week ago for which she has not had any treatment. She had pulled a tick on her own. She states she is usually exposed to tick bite at least once or twice every year. She does give history of having seizures in the past for last seizure 3 years ago. Currently she is not on any treatment. She also gives history of a possible meningitis-like illness in the past when she was a child and was admitted at [facility]. At that time apparently she was unconscious but not on a ventilator for over a week and was treated with IV antibiotics. She is not aware of any more details regarding that. In the ER patient's fever was 99.1, on my evaluation was lying comfortably in a dark room. Had photophobia on sitting on the lights are associated with nausea. Her blood work showed a white count of 9.2, hemoglobin of 12.7, CMP showing sodium of 136, creatinine of 0.7, lactate of 0.6, procalcitonin 0.04, urine studies negative for nitrate but positive for leuk esterase trace, CSF study showed a WBC of 80 with 98% mononuclear cells, CSF glucose of 45, protein of 70 with a drug screen being negative. As patient is at high risk of COVID-19 because of being recently exposed it was checked twice and came back negative. She was started on broad-spectrum antibiotics along with coverage for ticks with doxycycline. Her CSF cultures vail ve remained negative and tick panel so far is negative as well. Her results of Lyme's, Owen encephalitis, West Nile virus antibody from CSF is still pending. As patient is improving and is not having any more headache, photophobia or nausea she is been discharged in hemodynamic stable condition after being afebrile for last 72 hours with advised to take doxycycline for 5 more days to finish a 10-day course and IV ceftriaxone for 8 more days to finish a 10-day course. She has been set up with daily outpatient IV infusion of ceftriaxone. Patient can get back to work on March 11 after she has finished her course of antibiotics. Patient spouse is being checked for COVID-19 as well and results are pending. Patient has been counseled and advised in detail to maintain social isolation and using masks until his results are back as well. She has been advised to follow-up with her primary care provider within next 7 to 10 days. Medications have been provided to her at bedside. Physical Exam Narrative: EXAM NARRATIVE: General: No acute distress, AO x3, No photophobia or kernig's anymore HEENT: PERRLA, pupils bilaterally equal and reactive Chest: Normal vesicular breath sounds, no added sounds, equal good air entry bilaterally CVS: S1-S2 regular, no murmurs, no tachycardia, no gallops, no rubs Abdomen: Soft, nontender, no organomegaly, bowel sounds present Neuro: No focal deficits, no facial deformity, AO x3, power 5/5 in all limbs Extremities: Power bilaterally equal, pulses bilaterally equal Discharge Data Data Completed and Pending: Completed Studies During Hospitalization Category Date Time Status CT head wo con* [id number] Urgent Cat Scan 02/27/20 12:34 Completed FL guided lumbarp unc dx* [id number] Stat Exams 02/27/20 14:28 Completed XR chest 1V alanna ble [id number] Urgent Exams 02/27/20 12:34 Completed Pending at discharge Category Date Time Status Blood Culture Sta t Lab 02/27/20 12:25 Results Clostridioides Di fficile PCR Routin e Lab 03/01/20 11:45 Results Enteric Bacterial Panel by PCR Rout ine Lab 07/03/20 11:45 Results Enteric Parasite Panel by PCR Routi ne Lab 03/01/20 11:45 Results Immunochemical Fe noemi OCB Routine Lab 03/01/20 11:45 Results Lactoferrin Routi ne Lab 03/01/20 11:45 Results Lymes Disease Ant ibodies CSF Stat Lab 02/27/20 15:15 Received Respiratory Viral Panel PCR Stat Lab 02/27/20 16:49 Received Owen Enceph. Virus IFA CSF Stat Lab 02/27/20 15:15 Received West Nile Virus A B Panel,CSF Stat Lab 02/27/20 15:15 Received Labs from last 24 hours 02/27/20 12:43 E. chaffeensis IgG Ab <1:64 E. chaffeensis IgM Ab <1:20 E. chaffeensis Int erp See note E. chaffeensis Com ment Not Reportable Rickettsia IgG Ab Not detected Rickettsia IgM Ab Not detected Vitals: Last Vital Signs Temp 98.7 F 03/02/20 07:37 Pulse 90 03/02/20 07:37 Resp 15 03/02/20 07:37 BP 116/55 03/02/20 07:37 Pulse Ox 98 03/02/20 07:37 Discharge Plan Discharge Patient Disposition: Home, Self-Care Condition: Stable Prescriptions: New doxycycline monohydrate 100 mg Tablet 100 mg PO BID 5 Days Qty: 10 RF: 0 ceftriaxone 2 gram recon soln 2 gm IV Q24H 8 Days Qty: 8 RF: 0 acetaminophen 325 mg Tablet 650 mg PO Q6H PRN (Reason: Mild/Mod Pain Or Temp >/= 101) Qty: 10 RF: 0 Zofran 4 mg tablet 4 mg PO DAILY PRN (Reason: nausea and vomiting) 4 Days Qty: 10 RF: 0 Restora RX 60-1.25 mg capsule 1 cap PO DAILY Qty: 14 RF: 0 Continued acetaminophen 500 mg capsule 500 mg PO PRN RF: 0 Multiple Vitamins Tablet 1 tab PO DAILY RF: 0 ibuprofen 200 mg Tablet 600 mg PO PRN RF: 0 Discharge Orders: Discharge Order (Routine); Ordered 03/02/20 Ordered By: Matt Pichardo Referrals: [facility] [Other] (Please check in at the Emergency Department entrance at 8:15am on 03/03/2020 to register for outpatient IV antibiotic. Time scheduled for IV antibiotic is 8:30am. With questions please call [phone] Ext. [phone]. ) Asya Sosa MD [Physician] - 1 week (You have a hospital followup with Dr. Asya Sosa at [facility] on March 07 at 9:30am.) Discharge Diet: Regular Discharge Activity: Resume usual activity Patient Instructions: Diarrhea - Adult, Doxycycline (By mouth), Acetaminophen (By mouth), Ondansetron (By mouth), Ceftriaxone (Injection), Probiotic (By mouth), Headache, Viral Meningitis - Adult Activity Restrictions/Additional Instructions: Please use droplet precautions with mask even at home till your spouses COVID-19 growth come back. Continue taking doxycycline for 5 more days to finish a 10-day course. IV ceftriaxone once daily at GI Lab for 8 more days to finish 10-day course. Okay to go to work from Wednesday, March 11, 2020 after you finish a course of antibiotics. Discharge Date/Time: 03/02/20 12:45 Discharge Attestations Time Spent in Discharge Care*: greater than 30 min Specific Discharge Activities: Specific discharge activities: educating fausto ent, discussing with pcp/other providers, discussing with machine adjuster leader case trim/social workers/dc planners, documenting/other paperwork and evaluating patient/reviewing data Status at Discharge: Cognitive status at discharge: cognitively intact , Behavioral status at discharge: cooperative , Functional status at discharge: independent ambulation Overall status at discharge: patient is back to baseline Quality Metrics Clinical Quality Measures During this hospital stay, did patient experience: None Coding Level of Care Code Acute Hospitality Associate for Chg Fwd Diagnoses Headache R51 Meningitis G03.9
[2020-03-02 09:52] VITALS: BP 116/55; PULSE 90; RESP 15; TEMP 37.1; O2SAT 98
[2020-03-02] MEDS: cefTRIAXone 2,000 MG in sodium chloride 0.9% (plus) 50 ML 100 MG IV (10:57)
[2020-03-02] MEDS: acetaminophen 325 mg Tablet 650 MG PO (12:11)
[2020-03-02 12:19] VITALS: BP 113/69; PULSE 81; RESP 13; TEMP 36.8; O2SAT 98
--- NOTE | 2020-03-02 12:31 | PC.NURSE ---
Discharge instructions given per the physician's orders. Patient verbalized understanding of the information and did not have any further questions. Patient requests that discharge prescriptions be sent to [facility] pharmacy in [place], [place].
--- NOTE | 2020-03-02 12:43 | PC.NURSE ---
Prescriptions called in to [facility], [place], [place].
--- NOTE | 2020-03-04 10:27 | PC.SOCIAL ---
Addendum entered by Mercedez Burdick, RN 03/04/20 10:37: Spoke with Silvia in Outpatient and she reminded me of only having patient on schedule for Sun and Mon and that [facility] can put her on the schedule for remaining 6 days of treatment at 0830. Updated Lidia in Cent Scheduling. Original Note[facility] required for outpatient Abx therapy. Per Ciara Simpson with reference number being her name and todays date 03/04/2020, no precertification is required for outpatient Abx therapy. Notified Lidia at [facility] by phone and verfied that outpatient has her on the schedule.
[2020-03-05 22:35] LABS: Lyme Disease AB (IGG),IBL NO BANDS DETECTED; Lyme Disease AB (IGM), IBL NO BANDS DETECTED
[2020-03-06 05:15] LABS: West Nile Virus AB (IGG) <1.30 index; West Nile Virus AB (IGM) <0.90 index
[2020-03-07 16:15] LABS: St. Louis Enceph.Virus IGG CSF <1:1; St. Louis Enceph.Virus IGM CSF <1:1
[2020-03-07 20:30] LABS: Adenovirus Not Detected (Not Detected); Human Metapneumovirus Not Detected (Not Detected); Human Parainflu Virus 1 Not Detected (Not Detected); Human Parainflu Virus 2 Not Detected (Not Detected); Human Parainflu Virus 3 Not Detected (Not Detected); Human Rsv A Not Detected (Not Detected); Influenza A Not Detected (Not Detected); Influenza B Not Detected (Not Detected); Rhinovirus/Enterovirus Not Detected (Not Detected)
== END 2020-03-02 12:45 | disposition home or self-care (01) | DRG 99 ==
LOC: ER 12:14 → CSU 17:05
PROVIDERS: Family Medicine; Admitting Provider Student in an Organized Health Care Education/Training Program; Visit Provider Student in an Organized Health Care Education/Training Program
DX: G03.9 Meningitis, unspecified (principal); Z11.59 Encounter for screening for other viral diseases
CPT/HCPCS: 12345; 36415; 62328; 70450; 71045; 80053; 80202; 80306; 80500; 81001; 81025; 82274; 82945; 83605; 83615; 83630; 84145; 84157; 84443; 85025; 85378; 85651; 86140; 86617; 86618; 86653; 86666; 86757; 86788; 86789; 87040; 87070; 87075; 87086; 87205; 87449; 87493; 87506; 87635; 87641; 87804; 89050; 94664; 96372; 96375; 99283; J0696; J1200; J1650; J1885; J2405; J2543; J3370; J7030; J7050

== ENCOUNTER 2020-03-05 08:21 | Outpatient (RCR) | payer OTHER, SELFPAY ==
[2020-03-03] MEDS: cefTRIAXone 2,000 MG in sodium chloride 0.9% (plus) 50 ML 100 MG IV (08:53)
[2020-03-03 09:08] VITALS: BP 119/60; PULSE 67; RESP 18; TEMP 36.9; O2SAT 99
[2020-03-04 09:07] VITALS: BP 119/75; PULSE 70; RESP 18; TEMP 37.1; O2SAT 99; BMI 24.4
[2020-03-04] MEDS: cefTRIAXone 2,000 MG in sodium chloride 0.9% (plus) 50 ML 100 MG IV (09:22)
[2020-03-05 08:39] VITALS: BP 117/57; PULSE 66; RESP 18; TEMP 36.9; O2SAT 98
[2020-03-06] MEDS: cefTRIAXone 2,000 MG in sodium chloride 0.9% (plus) 50 ML 100 MG IV (08:25)
[2020-03-06 08:29] VITALS: BP 108/49; PULSE 71; RESP 18; TEMP 36.7; O2SAT 100
[2020-03-07 08:18] VITALS: BP 123/67; PULSE 75; RESP 18; TEMP 36.2; O2SAT 98
[2020-03-07] MEDS: cefTRIAXone 2,000 MG in sodium chloride 0.9% (plus) 50 ML 100 MG IV (08:40)
[2020-03-08] MEDS: cefTRIAXone 2,000 MG in sodium chloride 0.9% (plus) 50 ML 100 MG IV (08:38)
[2020-03-08 08:46] VITALS: BP 124/67; PULSE 80; RESP 18; TEMP 36.9; O2SAT 99
[2020-03-09 08:40] VITALS: BP 118/78; PULSE 71; RESP 18; TEMP 36.4; O2SAT 99
[2020-03-09] MEDS: cefTRIAXone 2,000 MG in sodium chloride 0.9% (plus) 50 ML 100 MG IV (08:40)
[2020-03-10] MEDS: cefTRIAXone 2,000 MG in sodium chloride 0.9% (plus) 50 ML 100 MG IV (08:35)
[2020-03-10 08:39] VITALS: BP 132/75; PULSE 68; RESP 17; TEMP 36.2; O2SAT 99
== END 2020-03-29 23:59 | disposition home or self-care (01) ==
LOC: GILAB 08:21
PROVIDERS: PCP Family Medicine; Visit Provider Student in an Organized Health Care Education/Training Program
DX: G03.9 Meningitis, unspecified (principal)
CPT/HCPCS: 96365; J0696

== ENCOUNTER → 2020-06-17 08:05 | Outpatient (BNVA) | payer OTHER, SELFPAY | PROVIDERS: PCP Family Medicine; Visit Provider Counselor Professional | DX: F33.2 Major depressive disorder, recurrent severe without psychotic features (principal); F41.1 Generalized anxiety disorder; F43.9 Reaction to severe stress, unspecified | CPT/HCPCS: 90791 ==

== ENCOUNTER → 2020-09-06 12:39 | Outpatient (BNVA) | payer OTHER, SELFPAY | PROVIDERS: PCP Family Medicine; Visit Provider Psychiatry & Neurology Psychiatry | DX: F41.1 Generalized anxiety disorder (principal); F32.1 Major depressive disorder, single episode, moderate | CPT/HCPCS: 90792 ==

== ENCOUNTER → 2020-09-20 11:05 | Outpatient (BNVA) | payer OTHER, SELFPAY | PROVIDERS: PCP Family Medicine; Visit Provider Counselor Professional | DX: F41.1 Generalized anxiety disorder (principal); F33.2 Major depressive disorder, recurrent severe without psychotic features | CPT/HCPCS: 90832 ==

== ENCOUNTER → 2020-10-04 11:10 | Outpatient (BNVA) | payer OTHER, SELFPAY | PROVIDERS: PCP Family Medicine; Visit Provider Counselor Professional | DX: F41.1 Generalized anxiety disorder (principal); F33.2 Major depressive disorder, recurrent severe without psychotic features | CPT/HCPCS: 90832 ==

== ENCOUNTER → 2020-10-18 11:05 | Outpatient (BNVA) | payer OTHER, SELFPAY | PROVIDERS: PCP Family Medicine; Visit Provider Counselor Professional | DX: F41.1 Generalized anxiety disorder (principal); F33.2 Major depressive disorder, recurrent severe without psychotic features | CPT/HCPCS: 90832 ==

== ENCOUNTER → 2020-10-28 12:44 | Outpatient (BNVA) | payer OTHER, SELFPAY | PROVIDERS: PCP Family Medicine; Visit Provider Counselor Professional | DX: F41.1 Generalized anxiety disorder (principal); F33.2 Major depressive disorder, recurrent severe without psychotic features | CPT/HCPCS: 90834 ==

== ENCOUNTER → 2020-10-31 08:30 | Outpatient (BNVA) | payer OTHER, SELFPAY | PROVIDERS: PCP Family Medicine; Visit Provider Psychiatry & Neurology Psychiatry | DX: F41.1 Generalized anxiety disorder (principal); F33.2 Major depressive disorder, recurrent severe without psychotic features | CPT/HCPCS: 99214 ==

== ENCOUNTER → 2020-11-18 13:45 | Outpatient (BNVA) | payer OTHER, SELFPAY | PROVIDERS: PCP Family Medicine; Visit Provider Counselor Professional | DX: F41.1 Generalized anxiety disorder (principal); F33.2 Major depressive disorder, recurrent severe without psychotic features | CPT/HCPCS: 90832 ==

== ENCOUNTER → 2020-12-02 14:02 | Outpatient (BNVA) | payer OTHER, SELFPAY | PROVIDERS: PCP Family Medicine; Visit Provider Counselor Professional | DX: F41.1 Generalized anxiety disorder (principal); F33.2 Major depressive disorder, recurrent severe without psychotic features | CPT/HCPCS: 90834 ==

== ENCOUNTER → 2020-12-23 14:45 | Outpatient (BNVA) | payer OTHER, SELFPAY | PROVIDERS: PCP Family Medicine; Visit Provider Social Worker Clinical | DX: F32.1 Major depressive disorder, single episode, moderate (principal); F41.1 Generalized anxiety disorder | CPT/HCPCS: 90847 ==

== ENCOUNTER → 2021-01-02 08:18 | Outpatient (BNVA) | payer OTHER, SELFPAY | PROVIDERS: PCP Family Medicine; Visit Provider Psychiatry & Neurology Psychiatry | DX: F41.1 Generalized anxiety disorder (principal); F33.2 Major depressive disorder, recurrent severe without psychotic features; F32.1 Major depressive disorder, single episode, moderate | CPT/HCPCS: 99214 ==

== ENCOUNTER → 2021-01-09 15:38 | Outpatient (BNVA) | payer OTHER, SELFPAY | PROVIDERS: PCP Family Medicine; Visit Provider Social Worker Clinical | DX: F32.1 Major depressive disorder, single episode, moderate (principal); F41.1 Generalized anxiety disorder | CPT/HCPCS: 90834 ==

== ENCOUNTER → 2021-01-13 14:12 | Outpatient (BNVA) | payer OTHER, SELFPAY | PROVIDERS: PCP Family Medicine; Visit Provider Nurse Practitioner Family | DX: J02.9 Acute pharyngitis, unspecified (principal); J06.9 Acute upper respiratory infection, unspecified | CPT/HCPCS: 87071; 87880 ==